=== PATIENT | male | born 1930 | race Caucasian/White ===

== ENCOUNTER 2017-08-02 08:17 | Inpatient (IN) | payer OTHER ==
[~2017-08-02] VITALS: Ht 172.7 cm; Wt 96.5 kg
--- NOTE | ~2017-08-02 | HC ---
[facility] [place] [address] CONSULTATION Name: TORSTEN HERMAN Room #: 353-P [facility] IN ..#: [id number] Admission: 08/02/17 Attend Phys: Joseph Wynn DO Discharge: Date of : 31 Report #: [id number] THIS REPORT FOR: //name// CC: Joseph Noland DATE OF SERVICE: 08/02/2017 ATTENDING PHYSICIAN: Dr. Wynn. REASON FOR EVALUATION: Influenza A. HISTORY OF PRESENT ILLNESS: Chart reviewed, patient examined. This is an 86-year-old male with known vasculopathy with particular coronary artery disease. Also, he is a long time smoker, who apparently had developed shortness of breath roughly 3 days prior to admission that had worsened. He was evaluated and found to have a positive influenza A antigen, started on oseltamivir, also given a dose of doxycycline, ceftriaxone x 1. Chest x-ray showed no infiltrates or evidence of pneumonitis. He is not encephalopathic. He denies any significant gastrointestinal-related complaints. ALLERGIES: LEVAQUIN STATED. MEDICATIONS: Include meloxicam, losartan, finasteride, tamsulosin, spironolactone, metoprolol, allopurinol, oseltamivir, atorvastatin, furosemide, ipratropium and albuterol inhaler, doxycycline, ceftriaxone as well. 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 SOCIAL HISTORY: Smoker [id number], cigars. Daily heavy alcohol. REVIEW OF SYSTEMS: As above. PHYSICAL EXAMINATION: GENERAL: He appears somewhat chronically ill. He is in moderate distress secondary to respiratory difficulties. He has got some audible wheezing. VITAL SIGNS: Temperature 99, pulse 85, respirations 24, blood pressure 125/85. SKIN: Warm. HEENT: Unremarkable. NECK: Supple. LUNGS: Diminished, otherwise clear breath sounds. HEART: Regular. No appreciated murmur. ABDOMEN: Soft, nontender. There are no peritoneal signs. GENITOURINARY AND RECTAL: Deferred. [facility] [address] [place] [address] CONSULTATION Name: TORSTEN HERMAN Dede Room #: 353-[facility] IN ..#: [id number] Admission: 08/02/17 Attend Phys: Joseph Wynn DO Discharge: Date of : 31 Report #: [id number] LABORATORY DATA: Lactic acid 1.6, it is down from 2.9. CBC: White count of 19.0, H and H 13.1 and 39.0, platelets of 229. Electrolytes: Sodium 141, potassium 3.4, chloride 101, bicarbonate is 27, anion gap of 13. BUN and creatinine 16 and 1.1. Glucose of 146. Estimated GFR of 64. Chest x-ray as described above, cardiomegaly, mild chronic-appearing congestion, mild medial basilar atelectasis, no acute chest process. Influenza antigen A was positive. ASSESSMENT: Influenza A. The patient certainly has risk factor for a more severe illness. We will continue the Tamiflu at this point. We will monitor expectantly. I do not think there is any evidence of secondary bacterial pneumonia, although he is at risk in the event of any worsening. We will consider that diagnosis and perhaps start empiric therapy. Continue supportive measures including hydration. <ELECTRONICALLY SIGNED> By: Robin Cornejo MD 08/04/17 1403 1659 0922 Robin Cornejo MD /nt
--- NOTE | ~2017-08-02 | EKG ---
[address] [address] ELECTROCARDIOGRAM REPORT Name: TORSTEN HERMAN Room #: 353-P ADM IN M.R.#: [id number] Admission: 08/02/17 Attend Phys: Joseph Wynn DO Discharge: Date of : 31 Report #: [id number] THIS REPORT FOR: //name// [facility] ED Test Date: 2017-08-02 Test Time: 08:27:45 Pat Name: TORSTEN HERMAN Department: Room: 353 P Gender: M Recycler: homar : 1930 Requested By: Jose Martin Peraza Order Number: [id number] MD: Terry Styles Measurements Intervals [place] Rate: 126 P: MS: QRS: 95 QRSD: 150 T: -5 QT: 347 QTc: 503 Interpretive Statements Atrial fibrillation Ventricular premature complex RBBB Anteroseptal infarct, age indeterminate Compared to ECG 11/07/2013 18:17:46 Ventricular premature complex(es) now present atrial fibrillation has replaced sinus rhythm Electronically Signed On 08-03-2017 10:01:05 PLATING TANK OPERATOR APPRENTICE by Terry Styles [email or web address] <ELECTRONICALLY SIGNED> By: Terry Styles MD, [facility] 08/03/17 1001 0827 0827 Terry Styles MD, [facility] /EPI
[2017-08-02 08:17] VITALS: BP 197/111
[~2017-08-02 08:17] MED LIST: ALDACTONE25 MG PO; ALLOPURINOL 30300 M1 PO; ALLOPURINOL 30300 M3 PO; AMBIEN 5 MG TABL5 M1 PO; ASPIR-TRIN325 MG PO; ASPIRIN325 PO; ATORVASTATIN CA40 MG PO; CARDURA2 MG PO; COZAAR 25 MG TA25 M1 PO; DAYPRO600 MG PO; DELUXE TABLET1 EACH PO; FINASTERIDE5 MG PO; FLOMAX0.4 MG PO; FUROSEMIDE 20 M20 M1 PO; LASIX 40 MG TAB40 M2 PO; LIPITOR80 MG PO; MICARDIS40 MG PO; NORCO 5-325 TA1 EACH PO; PROMETHAZINE/C118 ML PO; PROSCAR 5MG TABL5 MG PO; SIMVASTATIN80 MG PO; TOPROL XL25 MG PO; ULTRAM 50MG TAB50 MG PO; ZOFRAN ODT4 MG PO
[2017-08-02 08:46] LABS: HEMOGLOBIN 13.1 gm/dL (14.0-18.0); MCH 31.3 pg (26.0-34.0); MCHC 33.6 g/dL (28.0-37.0); MCV 93.4 fL (80.0-100.0); RBC 4.18 mil/uL (4.50-6.00); RDW 16.2 % (10.5-14.5)
[2017-08-02] MEDS ORDERED: MOBIC7.5 M1 PO (08:48)
[2017-08-02 08:59] LABS: CALCIUM 9.6 mg/dL (8.5-10.1); CREATININE 1.1 mg/dL (0.7-1.3); POTASSIUM 3.4 mmol/L (3.5-5.1)
[2017-08-02 11:05] VITALS: BP 158/140
[2017-08-02 11:11] VITALS: BP 164/71
[2017-08-02 11:31] VITALS: BP 144/68
[2017-08-02 16:36] VITALS: BP 125/85
[2017-08-02 19:55] VITALS: BP 119/76
[2017-08-03 03:40] VITALS: BP 122/81
[2017-08-03 06:54] LABS: HEMATOCRIT 33.8 % (42.0-52.0); HEMOGLOBIN 11.3 gm/dL (14.0-18.0); MCH 31.6 pg (26.0-34.0); MCHC 33.5 g/dL (28.0-37.0); MCV 94.2 fL (80.0-100.0); PLATELET COUNT 222 thou/uL (150-400); RBC 3.58 mil/uL (4.50-6.00); RDW 16.4 % (10.5-14.5); WBC 9.7 thou/uL (4.0-11.0)
[2017-08-03 07:07] LABS: CALCIUM 8.1 mg/dL (8.5-10.1); CREATININE 0.8 mg/dL (0.7-1.3); POTASSIUM 3.3 mmol/L (3.5-5.1)
[2017-08-03 08:09] LABS: ABSOLUTE NEUTROPHILS 8.1 thou/uL (1.4-8.2); ANISOCYTOSIS 1+; ATYPICAL LYMPHS 1 %; POLYCHROMASIA OCCASIONAL
[2017-08-03 08:10] LABS: POIKILOCYTOSIS SLIGHT
[2017-08-03 08:31] VITALS: BP 124/70
[2017-08-03 12:55] VITALS: BP 106/92
[2017-08-03 16:17] VITALS: BP 145/91
[2017-08-03 19:17] VITALS: BP 126/80
[2017-08-04 04:09] VITALS: BP 140/88
[2017-08-04 06:55] LABS: HEMATOCRIT 33.2 % (42.0-52.0); HEMOGLOBIN 11.6 gm/dL (14.0-18.0); MCH 32.3 pg (26.0-34.0); MCHC 34.9 g/dL (28.0-37.0); MCV 92.6 fL (80.0-100.0); PLATELET COUNT 236 thou/uL (150-400); RBC 3.58 mil/uL (4.50-6.00); RDW 16.6 % (10.5-14.5); WBC 7.8 thou/uL (4.0-11.0)
[2017-08-04 07:10] LABS: CALCIUM 8.4 mg/dL (8.5-10.1); CREATININE 0.8 mg/dL (0.7-1.3); POTASSIUM 3.2 mmol/L (3.5-5.1)
[2017-08-04 08:28] VITALS: BP 141/81
[2017-08-04 11:52] LABS: ABSOLUTE NEUTROPHILS 5.5 thou/uL (1.4-8.2); POLYCHROMASIA 1+
[2017-08-04 11:53] LABS: ANISOCYTOSIS SLIGHT
[2017-08-04] MEDS ORDERED: OSELB75 PO (14:23)
[2017-08-04] MEDS ORDERED: NEBULIZER MISCELL (14:24)
[2017-08-04] MEDS ORDERED: ALBUTEROL2.5 MG/0.5 INH (14:24)
[2017-08-04 15:17] VITALS: BP 141/81
== END 2017-08-04 16:12 | disposition home or self-care (01) | DRG 871 ==
LOC: ER 08:17 → 3W 09:43 → EROBS 09:43 → 3W 10:55
PROVIDERS: Emergency Medicine; Family Medicine
DX: A41.9 Sepsis, unspecified organism (principal); J96.00 Acute respiratory failure, unspecified whether with hypoxia or hypercapnia; I10 Essential (primary) hypertension; R65.20 Severe sepsis without septic shock; I48.91 Unspecified atrial fibrillation; I25.10 Atherosclerotic heart disease of native coronary artery without angina pectoris; E78.5 Hyperlipidemia, unspecified; F17.210 Nicotine dependence, cigarettes, uncomplicated; J11.1 Influenza due to unidentified influenza virus with other respiratory manifestations; Z88.1 Allergy status to other antibiotic agents; Z95.1 Presence of aortocoronary bypass graft; Z95.2 Presence of prosthetic heart valve
CPT/HCPCS: 10779

== ENCOUNTER → 2017-09-21 | Outpatient (CLI) | payer OTHER ==
[~2017-09-21] MED LIST changes: +ALBUTEROL2.5 MG/0.5 INH; +MOBIC7.5 M1 PO; +NEBULIZER MISCELL; +OSELB75 PO
--- NOTE | ~2017-09-21 | 2DMMODE ---
[facility] [address] [place] [address] 2 D/M-MODE ECHOCARDIOGRAM Name: TORSTEN HERMAN HORACIO Room #: REG [facility]#: [id number] Admission: 09/21/17 Attend Phys: Alonzo Almendarez MD Discharge: Date of : 31 Date of Service: 09/21/17 1516 Report #: [id number] THIS REPORT FOR: //name// APPROVED REPORT Study performed: 09/21/2017 14:15:07 EXAM: Comprehensive 2D, Doppler, and color-flow Echocardiogram Patient Location: Echo lab Status: routine BSA: 2.07 BP: 155/99 mmHg Other Information Study Quality: Good Indications CAD Hypertension/HDD 2D Dimensions RVDd: 36.31 mm LVEF(%): 41.47 (>50%) IVSd: 12.86 (7-11mm) LVOT Diam: 20.27 (18-24mm) LVDd: 60.54 mm PWd: 12.64 (7-11mm) Ascending Ao: 35.23 (22-36mm) LVDs: 48.00 (25-40mm) Aortic Root: 33.48 mm IVC: 18.00 mm Newby's LVEF: 41.47 % Volumes Left Atrial Volume (Systole) Single Plane 4CH: 140.99 mL Single Plane 2CH: 144.98 mL LA ESV Index: 77.00 mL/m2 Aortic Valve AoV Peak Braden.: 2.06 m/s AO Peak Gr.: 17.22 mmHg LVOT Max P.97 mmHg AO Mean Gr.: 8.89 mmHg LVOT Mean P.42 mmHg AO V2 Mean: 1.35 m/s LVOT Max V: 1.22 m/s AO V2 VTI: 37.02 cm LVOT Mean V: 0.68 m/s ADELINA (VTI): 1.69 cm2 LVOT V1 VTI: 19.40 cm ADELINA Vmax: 1.91 cm2 SV (LVOT): 62.60 mL [facility] [place] [place] [address] 2 D/M-MODE ECHOCARDIOGRAM Name: TORSTEN HERMNA HORACIO [id number] Admission: 09/21/17 Attend Phys: Alonzo Almendarez MD Discharge: Date of : 31 Date of Service: 09/21/17 1516 Report #: [id number] Mitral Valve MV Decel. Time: 167.08 ms MV E Max Braden.: 1.41 m/s Pulmonary Valve PV Peak Braden.: 1.34 m/s PV Peak Gr.: 7.27 mmHg Pulmonary Vein P Vein S: 0.65 m/s P Vein D: 0.79 m/s P Vein S/D Ratio: 0.82 Tricuspid Valve TR Peak Braden.: 3.64 m/s RAP Estimate: 5.00 mmHg TR Peak Gr.: 52.93 mmHg PA Pressure: 58.00 mmHg Left Ventricle Left ventricle is mildly dilated. Mild concentric left ventricular hypertrophy. Left ventricular systolic function is moderately decreased. LVEF is 35-40%. This study is not technically sufficient to allow evaluation of the LV diastolic function. Right Ventricle Right ventricle is at the upper limits of normal. Right ventricle is hypokinetic. Atria Left atrium is severely dilated. Right atrium is severely dilated. Aortic Valve Medtronic porcine bioprosthetic valve is present with a max pressure gradient of 17 mmHg and a mean pressure gradient of 9 mmHg. Moderate aortic regurgitation. Mitral Valve Mild mitral annular calcification. The mitral valve is mildly thickened. Severe mitral regurgitation. No evidence of mitral valve stenosis. Tricuspid Valve The tricuspid valve is normal in structure. Moderate tricuspid regurgitation. PAP is estimated at 58 mmHg. [facility] [address] [place] [address] 2 D/M-MODE ECHOCARDIOGRAM Name: TORSTEN HERMAN Room #: REG CL [facility]#: [id number] Admission: 09/21/17 Attend Phys: Alonzo Almendarez MD Discharge: Date of : 31 Date of Service: 09/21/17 1516 Report #: [id number] Pulmonic Valve The pulmonary valve is normal in structure. Mild pulmonic regurgitation. Great Vessels The aortic root is normal in size. IVC is normal in size and collapses >50% with inspiration. Pericardium There is no pericardial effusion. <Conclusion> Left ventricle is mildly dilated. Mild concentric left ventricular hypertrophy. Left ventricular systolic function is moderately decreased. Left atrium is severely dilated. Right atrium is severely dilated. Medtronic porcine bioprosthetic valve is present with a max pressure gradient of 17 mmHg and a mean pressure gradient of 9 mmHg. Moderate aortic regurgitation. Severe mitral regurgitation. Moderate tricuspid regurgitation. PAP is estimated at 58 mmHg. <ELECTRONICALLY SIGNED> By: Alonzo Almendarez MD 09/21/17 1516 1516 1516 Alonzo Almendarez MD /INF
== END ==
LOC: CV 12:49
DX: I08.3 Combined rheumatic disorders of mitral, aortic and tricuspid valves (principal); I25.10 Atherosclerotic heart disease of native coronary artery without angina pectoris; I10 Essential (primary) hypertension

== ENCOUNTER → 2018-11-29 | Outpatient (CLI) | payer OTHER ==
--- NOTE | 2018-11-29 09:37 | 2DMMODE ---
[facility] [place] [address] 2 D/M-MODE ECHOCARDIOGRAM Name: TORSTEN HERMAN HORACIO Room #: REG [facility]#: [id number] ������������� Admission: 11/29/18 ������������� Attend Phys: Alonzo Almendarez MD Discharge: ��� ������������� ��� Date of : 32 Date of Service: 11/29/18 0937 �� Report #: [id number] �������� ��������������������������������������������[id number] THIS REPORT FOR: //name// APPROVED REPORT Study performed: 11/29/2018 08:03:12 EXAM: Comprehensive 2D, Doppler, and color-flow Echocardiogram Patient Location: Out-Patient Status: routine BSA: 2.00 HR: 53 bpm BP: 144/64 mmHg Rhythm: Atrial Fibrillation Other Information Study Quality: Good Indications Atrial Fibrillation CAD Aortic valve replacement 2D Dimensions RVDd: 47.39 mm IVSd: 12.23 (7-11mm) LVDd: 58.81 mm PWd: 11.05 (7-11mm) Ascending Ao: 37.60 (22-36mm) LVDs: 47.57 (25-40mm) Aortic Root: 32.12 mm Volumes Left Atrial Volume (Systole) Single Plane 4CH: 120.16 mL Single Plane 2CH: 118.59 mL LA ESV Index: 66.00 mL/m2 Aortic Valve AoV Peak Braden.: 2.48 m/s AO Peak Gr.: 24.65 mmHg LVOT Max P.14 mmHg AO Mean Gr.: 14.42 mmHg AO V2 Mean: 1.82 m/s LVOT Max V: 0.73 m/s AO V2 VTI: 63.10 cm Mitral Valve [facility] [address] [address] 2 D/M-MODE ECHOCARDIOGRAM Name: VIRGILTORSTENFARHAT LEONARD Room #: REG CL [facility]#: [id number] ������������� Admission: 11/29/18 ������������� Attend Phys: Alonzo Almendarez MD Discharge: ��� ������������� ��� Date of : 31 Date of Service: 11/29/18 0937 �� Report #: [id number] �������� ��������������������������������������������[id number] MV Decel. Time: 189.31 ms MV E Max Braden.: 1.31 m/s IVRT: 69.20 ms Pulmonary Valve PV Peak Braden.: 0.89 m/s PV Peak Gr.: 3.20 mmHg Pulmonary Vein P Vein S: 0.37 m/s P Vein D: 0.72 m/s P Vein S/D Ratio: 0.51 Tricuspid Valve TR Peak Braden.: 3.58 m/s RAP Estimate: 5.00 mmHg TR Peak Gr.: 51.15 mmHg PA Pressure: 56.00 mmHg Left Ventricle Left ventricle is mildly dilated. There is hypokinesis of the inferior wall. Mild concentric left ventricular hypertrophy. Left ventricular systolic function is mild to moderately decreased. LVEF is 40-45%. This study is not technically sufficient to allow evaluation of the LV diastolic function. Right Ventricle Right ventricle is mildly dilated. The right ventricular systolic function is normal. Atria Left atrium is severely dilated. Right atrium is severely dilated. Aortic Valve Medtronic porcine bioprosthetic valve. Peak pressure gradient 25mmHg and mean of 14mmHg. Mild to moderate aortic regurgitation. Mitral Valve The mitral valve is normal in structure. Severe mitral regurgitation. Tricuspid Valve The tricuspid valve is normal in structure. Moderate tricuspid regurgitation. Estimated PAP is 55-60mmHg. Pulmonic Valve The pulmonary valve is normal in structure. Mild pulmonic [facility] [place] [address] 2 D/M-MODE ECHOCARDIOGRAM Name: TORSTEN HERMAN HORACIO Room #: REG CL [facility]#: [id number] ������������� Admission: 11/29/18 ������������� Attend Phys: Alonzo Almendarez MD Discharge: ��� ������������� ��� Date of : 31 Date of Service: 11/29/18 0937 �� Report #: [id number] �������� ��������������������������������������������[id number] regurgitation. Great Vessels The aortic root is normal in size. Ascending aorta measures at the upper limits of normal. IVC is normal in size and collapses >50% with inspiration. Pericardium There is no pericardial effusion. <Conclusion> Left ventricle is mildly dilated. Mild concentric left ventricular hypertrophy. Left ventricular systolic function is mild to moderately decreased. LVEF is 40-45%. Right ventricle is mildly dilated. Left atrium is severely dilated. Right atrium is severely dilated. Medtronic porcine bioprosthetic valve. Peak pressure gradient 25mmHg and mean of 14mmHg. Mild to moderate aortic regurgitation. Severe mitral regurgitation. Moderate tricuspid regurgitation. Estimated PAP is 55-60mmHg. ��������������������������������������������� <ELECTRONICALLY SIGNED> ���������������������������������������� By: Alonzo Almendarez MD ��������������������������������������������� 11/29/1837 6 6 Alonzo Almendarez MD /INF
== END ==
LOC: CV 07:37
DX: I08.8 Other rheumatic multiple valve diseases (principal); I48.91 Unspecified atrial fibrillation; I25.10 Atherosclerotic heart disease of native coronary artery without angina pectoris; Z88.1 Allergy status to other antibiotic agents

== ENCOUNTER 2019-06-08 03:36 | Emergency (ER) | payer OTHER ==
[~2019-06-08] VITALS: Ht 175.3 cm; Wt 83.9 kg
[2019-06-08 04:40] LABS: URINE CLARITY CLOUDY; URINE COLOR YELLOW; URINE SPECIFIC GRAVITY 1.015 (1.005-1.035)
[2019-06-08 04:41] LABS: URINE BILIRUBIN NEGATIVE (Negative); URINE BLOOD 3+ (Negative); URINE GLUCOSE-RANDOM* NEGATIVE (Negative); URINE KETONES TRACE (Negative); URINE NITRITE-REFLEX NEGATIVE (Negative); URINE PROTEIN (DIPSTICK) 2+ (Negative)
[2019-06-08 04:42] LABS: BACTERIA-REFLEX >30 Many /HPF (None Seen); SQUAMOUS 0-3 Few /LPF (0-3); URINE LEUKOCYTES-REFLEX 3+ (Negative); URINE RBC >20 Many /HPF (0-2); URINE UROBILINOGEN 0.2 E.U./dl (0.2-1.0); URINE WBC-REFLEX >25 Many /HPF (0-5); WBC CLUMPS Packed (None Seen)
[2019-06-08 04:43] LABS: CRYSTALS None Seen /LPF (None Seen); HYALINE CASTS 4-10 Moderate /LPF (None Seen); MUCUS 0-3 Light strn/LPF (None Seen)
[2019-06-08] MEDS ORDERED: KEFLEX500 M1 PO (04:46)
[2019-06-08 05:04] VITALS: BP 159/68
== END 2019-06-08 05:04 | disposition home or self-care (01) ==
LOC: ER 03:36
PROVIDERS: Emergency Medicine
DX: R33.9 Retention of urine, unspecified (principal); I10 Essential (primary) hypertension; E78.5 Hyperlipidemia, unspecified; F17.210 Nicotine dependence, cigarettes, uncomplicated; Z88.1 Allergy status to other antibiotic agents

== ENCOUNTER → 2019-12-29 | Outpatient (CLI) | payer OTHER ==
[~2019-12-29] MED LIST changes: +KEFLEX500 M1 PO
== END ==
LOC: SJCVCIMAG 09:56
PROVIDERS: ATTEND Internal Medicine Cardiovascular Disease
DX: R94.31 Abnormal electrocardiogram [ECG] [EKG] (principal); I08.8 Other rheumatic multiple valve diseases; I45.10 Unspecified right bundle-branch block; I48.91 Unspecified atrial fibrillation; I25.5 Ischemic cardiomyopathy; I25.10 Atherosclerotic heart disease of native coronary artery without angina pectoris; I10 Essential (primary) hypertension; E78.00 Pure hypercholesterolemia, unspecified; Z95.1 Presence of aortocoronary bypass graft; Z95.2 Presence of prosthetic heart valve

== ENCOUNTER 2020-02-20 15:03 | Emergency (ER) | payer OTHER ==
[~2020-02-20] VITALS: Ht 170.2 cm; Wt 86.2 kg
[2020-02-20 15:47] LABS: HEMOGLOBIN 10.6 gm/dL (14.0-18.0); MCH 32.3 pg (26.0-34.0); MCV 97.8 fL (80.0-100.0); PLATELET COUNT 201 thou/uL (150-400); RBC 3.27 mil/uL (4.50-6.00); RDW 18.2 % (10.5-14.5); WBC 7.5 thou/uL (4.0-11.0)
[2020-02-20 15:51] LABS: CALCIUM 9.6 mg/dL (8.5-10.1); CREATININE 1.1 mg/dL (0.7-1.3); POTASSIUM 3.8 mmol/L (3.5-5.1)
[2020-02-20 15:57] LABS: TOTAL PROTEIN 7.2 g/dL (6.4-8.2)
[2020-02-20 16:15] LABS: PLATELET ESTIMATE NORMAL
[2020-02-20 16:16] LABS: ANISOCYTOSIS 1+
[2020-02-20] MEDS ORDERED: PREDNISONE 20 M20 MG PO (18:13)
[2020-02-20] MEDS ORDERED: TRAMADOL 50 MG50 MG PO (18:13)
[2020-02-20] MEDS ORDERED: MELOXICAM7.5 MG PO (18:47)
[2020-02-20 20:06] VITALS: BP 136/72
== END 2020-02-20 20:07 | disposition home or self-care (01) ==
LOC: ER 15:03
PROVIDERS: Emergency Medicine
DX: M25.422 Effusion, left elbow (principal); I10 Essential (primary) hypertension; E78.5 Hyperlipidemia, unspecified; F17.210 Nicotine dependence, cigarettes, uncomplicated; Z95.1 Presence of aortocoronary bypass graft; Z79.899 Other long term (current) drug therapy; Z88.1 Allergy status to other antibiotic agents

== ENCOUNTER 2020-03-29 17:35 | Emergency (ER) | payer OTHER ==
[~2020-03-29] VITALS: Ht 172.7 cm; Wt 81.7 kg
[~2020-03-29 17:35] MED LIST changes: +MELOXICAM7.5 MG PO; +PREDNISONE 20 M20 MG PO; +TRAMADOL 50 MG50 MG PO
[2020-03-29] MEDS ORDERED: PRADAXA75 MG PO (18:03)
[2020-03-29] MEDS ORDERED: ASA81BEC PO (18:05)
[2020-03-29] MEDS ORDERED: LEVO-T50 MCG PO (18:05)
[2020-03-29] MEDS ORDERED: TOPROL XL50 MG PO (18:06)
[2020-03-29 20:14] VITALS: BP 107/31
--- NOTE | 2020-03-30 08:30 | EKG ---
[facility] [place] [address] [address] ELECTROCARDIOGRAM REPORT Name: TORSTEN HERMAN Room #: DEP [facility].#: [id number] Admission: 03/29/20 Attend Phys: Discharge: 03/29/20 Date of : 31 Report #: [id number] THIS REPORT FOR: cc: Husam Noland MD, Steven A. MD Lundgren,Terry Aparicio MD [facility] ~ THIS REPORT FOR: //name// [facility] ED Test Date: 2020-03-29 Test Time: 19:38:00 Pat Name: TORSTEN HERMAN Department: Room: Gender: Antenna Installer: pablo : 1930 Requested By: Kingsley uDncan Order Number: [id number] MD: Terry Styles Measurements Intervals [place] Rate: 42 P: GA: QRS: 95 QRSD: 161 T: 7 QT: 524 QTc: 438 Interpretive Statements Atrial fibrillation Ventricular premature complex RBBB and LPFB Compared to ECG 08/02/2017 08:27:45 Heart rate has slowed Electronically Signed On 03-30-2020 8:30:36 CDT by Terry Styles [email or web address] <ELECTRONICALLY SIGNED> By: Terry Styles MD, [facility] 03/30/20829 37 37 Terry Styles MD, [facility] /EPI
== END 2020-03-29 20:14 | disposition home or self-care (01) ==
LOC: ER 17:35
DX: S01.01XA Laceration without foreign body of scalp, initial encounter (principal); I10 Essential (primary) hypertension; E78.5 Hyperlipidemia, unspecified; F17.210 Nicotine dependence, cigarettes, uncomplicated; Z98.61 Coronary angioplasty status; Z79.899 Other long term (current) drug therapy; Z79.82 Long term (current) use of aspirin; Z88.1 Allergy status to other antibiotic agents; W01.0XXA Fall on same level from slipping, tripping and stumbling without subsequent striking against object, initial encounter; Y93.89 Activity, other specified; Y92.488 Other paved roadways as the place of occurrence of the external cause; Y99.8 Other external cause status

== ENCOUNTER → 2020-06-11 | Outpatient (CLI) | payer OTHER ==
[~2020-06-11] MED LIST changes: +ASA81BEC PO; +LEVO-T50 MCG PO; +PRADAXA75 MG PO; +TOPROL XL50 MG PO
== END ==
LOC: SJCVC 10:00
PROVIDERS: ATTEND Internal Medicine Cardiovascular Disease
DX: I21.29 ST elevation (STEMI) myocardial infarction involving other sites (principal); I45.10 Unspecified right bundle-branch block; R94.31 Abnormal electrocardiogram [ECG] [EKG]; I11.9 Hypertensive heart disease without heart failure; I48.91 Unspecified atrial fibrillation; I25.5 Ischemic cardiomyopathy; I25.10 Atherosclerotic heart disease of native coronary artery without angina pectoris; E78.00 Pure hypercholesterolemia, unspecified

== ENCOUNTER 2020-06-21 18:22 | Inpatient (IN) | payer OTHER ==
[~2020-06-21] VITALS: Ht 152.4 cm; Wt 85.7 kg
--- NOTE | ~2020-06-21 | EMS ---
[place] [address] EMS Patient Care Report Name: TORSTEN HERMAN Room #: REG Y[facility] Morales#: [id number] Admission: 06/21/20 Attend Phys: Discharge: Date of : 31 Report #: [id number] THIS REPORT FOR: //name// Report Transmitted: 06/21/2020 19:13 EMS Care Summary [place] [facility] [place] Incident [phone] @ 06/21/2020 17:45 Incident Location [address] [place] [address] Patient TORSTEN HERMAN Male, 89 Years 1930 Patient Address [address] [place] [address] Patient History Other, Patient Medications Other, Chief Complaint WEAKNESS Disposition Transported No Lights/[place] Dispatch Reason Breathing Problem Transported To [facility] Narrative DISPATCHED TO A BREATHING PROBLEM. ARRIVED ON SCENE TO FIND FIRE CREW ASSESSING MALE PATIENT SEATED ON THE SOFA IN HIS LIVING ROOM. PATIENT'S STATED THAT HE HAD BEEN DIAGNOSED WITH COVID 19 YESTERDAY AND HAS BEEN FEELING ILL SINCE LAST THURSDAY. TODAY HE WAS TOO WEAK TO GET OFF OF THE SOFA TO USE THE RESTROOM AND SHE SAID HE CAN NORMALLY DO THAT. SHE SAID THAT SHE IS UNABLE TO LIFT HIM TO HELP HIM GET AROUND. ALSO SAID THAT PATIENT [place] [address] EMS Patient Care Report Name: TORSTEN HERMAN Room #: REG ER [facility]#: [id number] Admission: 06/21/20 Attend Phys: Discharge: Date of : 31 Report #: [id number] FOR THE PAST TWO DAYS. FIRE CREW HAD OBTAINED ON SCENE VITALS AND PLACED THE PATIENT ON OXYGEN VIA NASAL CANNULA. HIS LUNGS WERE AUSCILTATED AND FOUND TO BE COARSE BUT MOVING GOOD AIR. PATIENT WAS WARM TO THE TOUCH BUT HE SAID THAT HE DID NOT HAVE ANY OTHER COMPLAINTS EXCEPT FOR THE INCREASED WEAKNESS. PATIENT DENIED ANY SHORTNESS OF BREATH. HE WAS ASSISTED IN STANDING AND SITTING ON THE COT, COVERED, SECURED WITH STRAPS, AND MOVED TO THE BACK OF THE AMBULANCE. PATIENT VITALS WERE REOBTAINED AND HE WAS TRANSPORTED TO THE HOSPITAL WITH VITALS AND INTERVENTIONS MONITORED. UPON ARRIVAL PATIENT WAS MOVED TO ED ROOM 1 ON THE COT AND LIFTED OVER TO THE HOSPITAL BED. PATIENT CARE WAS TURNED OVER TO ED NURSING STAFF. Initial Vitals @18:11P: 91,BP: 152/94,CO: 3,SpO2: 96, @18:07P: 78,R: 16,BP: 144/84,Pain: 0/10,GCS: 15,Glucose: 148,CO: 1,SpO2: 96,Revised Trauma: 12, @18:14P: 101,R: 16,BP: 153/63,Pain: 0/10,GCS: 15,CO: 3,SpO2: 97,Revised Trauma: 12, Assessments @17:55MENTAL:Person Oriented,Time Oriented,Event Oriented,Place Oriented,SKIN:Hot,HEENT:Head/Face: No Abnormalities,Neck/Airway: No Abnormalities,LUNG SOUNDS:General: No Abnormalities,Left Upper: No Abnormalities,Right Upper: No Abnormalities,Left Lower: No Abnormalities,Right Lower: No Abnormalities,ABDOMEN:General: No Abnormalities,Left Upper: No Abnormalities,Right Upper: No Abnormalities,Left Lower: No Abnormalities,Right Lower: No Abnormalities,PELVIS//GI:No Abnormalities,EXTREMITIES:Left Leg: Weakness,Right Leg: Weakness,Right Arm: Weakness,Left Arm: Weakness,Capillary Refill: Right Upper: < 2 Sec,PULSE:Radial: 2+ Normal,NEURO:Weakness Right-Sided,Weakness Left-Sided, Impression Generalized Weakness Procedures @17:55ALS AssessmentResponse: UnchangedSucceeded@PTAOxygen FlowRate: 4 Device: Nasal Cannula (NC) Succeeded Timeline BASKETBALL COMMENTATOR,Oxygen FlowRate: 4 Device: Nasal Cannula (NC) Succeeded, 17:43,Call Received 17:43,Dispatch Notified 17:45,Dispatched 17:46,En Route 17:53,On Scene 17:55,At Patient 17:55,ALS Assessment,Response: UnchangedSucceeded, [facility] [address] [place] [address] EMS Patient Care Report Name: TORSTEN HERMAN Room #: REG A[facility] Morales#: [id number] Admission: 06/21/20 Attend Phys: Discharge: Date of : 31 Report #: [id number] 18:05,Depart Scene 18:07,BP: 144/84 M,PULSE: 78,RR: 16 R,SPO2: 96 Ox,ETCO2: ,B,PAIN: 0,GCS: 15, 18:11,BP: 152/94 M,PULSE: 91,RR: R,SPO2: 96 Ox,ETCO2: ,BG: ,PAIN: ,GCS: , 18:14,BP: 153/63 M,PULSE: 101,RR: 16 R,SPO2: 97 Ox,ETCO2: ,BG: ,PAIN: 0,GCS: 15, 18:15,At Destination 18:28,Call Closed Disclaimer v1.1 Copyright 2020 [employer] This EMS Care Summary contains data elements from the applicable legal record (which may be displayed differently). It is designed to provide pertinent information for the following purposes: continuity of care, clinical quality, and state data reporting. The complete legal record is available to ED staff and administrators of the receiving hospital in ES's Patient Tracker. All data is provided "as is."
[2020-06-21 18:24] VITALS: BP 141/86
[2020-06-21 18:55] LABS: HEMATOCRIT 30.4 % (42.0-52.0); MCH 29.8 pg (26.0-34.0); MCV 90.4 fL (80.0-100.0); PLATELET COUNT 200 thou/uL (150-400); RBC 3.36 mil/uL (4.50-6.00); RDW 18.5 % (10.5-14.5); WBC 6.8 thou/uL (4.0-11.0)
[2020-06-21 19:02] LABS: CALCIUM 8.9 mg/dL (8.5-10.1); CREATININE 1.3 mg/dL (0.7-1.3); POTASSIUM 3.1 mmol/L (3.5-5.1)
[2020-06-21 19:08] LABS: ALBUMIN 3.4 g/dL (3.4-5.0); DIRECT BILIRUBIN 0.6 mg/dL (<0.1-0.2); TOTAL BILIRUBIN 1.6 mg/dL (0.2-1.0); TOTAL PROTEIN 6.7 g/dL (6.4-8.2)
[2020-06-21 19:38] LABS: ABSOLUTE NEUTROPHILS 3.9 thou/uL (1.4-8.2)
[2020-06-21 19:39] LABS: ANISOCYTOSIS 1+; POLYCHROMASIA OCCASIONAL
[2020-06-21 20:52] LABS: CHOLESTEROL 93 mg/dL (<200); HDL CHOLESTEROL 28 mg/dL (>40); LDL CHOLESTEROL 52 mg/dL (<100); TC:HDL 3.3 Ratio (Not establshd); TRIGLYCERIDE 66 mg/dL (<150); VLDL 13 mg/dL (<40)
[2020-06-21 20:57] LABS: SERUM ASSESSMENT Clear
[2020-06-22 00:39] LABS: URINE BILIRUBIN NEGATIVE (Negative); URINE BLOOD 2+ (Negative); URINE CLARITY CLEAR; URINE COLOR YELLOW; URINE GLUCOSE-RANDOM* NEGATIVE (Negative); URINE KETONES NEGATIVE (Negative); URINE LEUKOCYTES-REFLEX NEGATIVE (Negative); URINE NITRITE-REFLEX NEGATIVE (Negative); URINE PROTEIN (DIPSTICK) 2+ (Negative)
[2020-06-22 00:59] LABS: BACTERIA-REFLEX None Seen /HPF (None Seen); CASTS None Seen /LPF (None Seen); CRYSTALS None Seen /LPF (None Seen); MUCUS None Seen strn/LPF (None Seen); SQUAMOUS None Seen /LPF (0-3); URINE RBC 0-2 Rare /HPF (0-2); URINE WBC-REFLEX None Seen /HPF (0-5)
[2020-06-22 01:05] LABS: APTT 29.6 Seconds (24.5-32.8); FIBRINOGEN 310.9 mg/dL (210-360); INR 1.4; PROTIME 14.3 Seconds (9.3-11.4)
[2020-06-22 01:16] LABS: D-DIMER 1.7 ug/mLFEU (0.19-0.50)
[2020-06-22 05:37] LABS: HEMATOCRIT 28.1 % (42.0-52.0); HEMOGLOBIN 9.2 gm/dL (14.0-18.0); MCHC 32.7 g/dL (28.0-37.0); MCV 91.8 fL (80.0-100.0); RBC 3.07 mil/uL (4.50-6.00); RDW 18.3 % (10.5-14.5); WBC 2.6 thou/uL (4.0-11.0)
[2020-06-22 07:00] LABS: CALCIUM 8.2 mg/dL (8.5-10.1); CREATININE 1.1 mg/dL (0.7-1.3); POTASSIUM 3.5 mmol/L (3.5-5.1)
--- NOTE | 2020-06-22 07:34 | EKG ---
[facility] [place] [address] [place] [address] ELECTROCARDIOGRAM REPORT Name: TOSRTEN HERMAN Room #: 170-1 ADM IN M.R.#: [id number] Admission: 06/21/20 Attend Phys: Barrington Barber MD Discharge: Date of : 31 Report #: [id number] THIS REPORT FOR: cc: Husam Noland MD, Steven A. MD Santiago, Patrick MD [facility] WITH [facility] ~ THIS REPORT FOR: //name// [facility] ED Test Date: 2020-06-22 Test Time: 02:00:41 Pat Name: TORSTEN HERMAN Department: Room: 170 1 Gender: M Glass Sagger: asmita : 1930 Requested By: Dorita Camilo Order Number: [id number] MD: Mitchell Henry Measurements Intervals [place] Rate: 44 P: MS: QRS: 101 QRSD: 168 T: 103 QT: 598 QTc: 512 Interpretive Statements Atrial fibrillation Ventricular premature complex RBBB and LPFB Compared to ECG 03/29/2020 19:38:00 No significant changes Electronically Signed On 06-22-2020 7:34:05 FORENSIC COMPUTER EXAMINER by Mitchell Henry [email or web address] <ELECTRONICALLY SIGNED> By: Mitchell Henry MD, FACC 06/22/20 0734 9 9 Mitchell Henry MD, FAC /EPI
[2020-06-22 17:14] VITALS: BP 116/51
[2020-06-22 18:16] VITALS: BP 124/74
[2020-06-22] MEDS ORDERED: PRADAXA150 MG PO (18:20)
[2020-06-22 18:25] VITALS: BP 123/56
--- NOTE | 2020-06-22 18:45 | NUR ---
ASSUMED CARE OF PT UPON ARRIVAL TO UNIT AT APPROX 1830. PT AOX4 IN NO ACUTE DISTRESS. UP W/ WALKER OT BATHROOM. VOICING NO COMPLAINTS. VITALS STABLE . IRREGULAR ON TELEMETRY. EDUCATED ON FALL PRECAUTIONS.
[2020-06-22 20:34] VITALS: BP 103/68
[2020-06-23 03:55] VITALS: BP 109/62
[2020-06-23 05:25] LABS: HEMATOCRIT 28.5 % (42.0-52.0); HEMOGLOBIN 9.4 gm/dL (14.0-18.0); MCH 29.8 pg (26.0-34.0); MCV 90.4 fL (80.0-100.0); PLATELET COUNT 191 thou/uL (150-400); RBC 3.16 mil/uL (4.50-6.00); RDW 17.8 % (10.5-14.5)
[2020-06-23 05:34] LABS: WBC 10.3 thou/uL (4.0-11.0)
[2020-06-23 07:47] VITALS: BP 108/73
--- NOTE | 2020-06-23 07:53 | NUR ---
ADMIT PT ADMITTED FROM ED FOR R/O COVID. LUNGS CLEAR VSS DENIES COUGH OR OTHER SYMPTOMS ANSWERED QUESTIONS FOR ADMISSION WITHOUT DIFFICULTY. UP WITH SBA AND WALKER GAIT SLIGHTLY UNSTEADY PT DENIES ANY RECENT FALLS. VSS, ON ROOM AIR.
[2020-06-23 11:07] LABS: ABSOLUTE NEUTROPHILS 8.9 thou/uL (1.4-8.2)
[2020-06-23 11:08] LABS: ANISOCYTOSIS 1+
--- NOTE | 2020-06-23 11:12 | HC ---
[facility] [place] [address] CONSULTATION Name: TORSTEN HERMAN Room #: 354-P ADM IN M.R.#: [id number] Admission: 06/21/20 Attend Phys: Barrington Barber MD Discharge: Date of : 31 Report #: [id number] THIS REPORT FOR: cc: Husam Noland MD, Steven A. MD Barry, Joseph W. MD ~ DATE OF SERVICE: 06/22/2020 INFECTIOUS DISEASE CONSULTATION ATTENDING PHYSICIAN: Dr. Barrington Barber. REASON FOR EVALUATION: COVID-19 infection, complicated by pneumonia. HISTORY OF SUBJECTIVE: Chart reviewed, the patient examined. This is an 89-year-old gentleman presented to the Emergency Room with complaints of generalized weakness, previously seen the day before was diagnosed with COVID-19, noted apparently had some emesis with diarrhea as well. He had a nonproductive cough. He was found to have borderline saturations as well, was given some supplemental oxygen got him to 96%. He seen still boarding in the Emergency Room. He denies any significant complaints at this point, states he feels better. He is on room air. Initially had fevers to 101.5, repeat earlier today was 97.5 with relatively stable hemodynamics. Initial chest x-ray did show bilateral diffuse infiltrates. Lactic acid was borderline elevated at 2.0. Influenza antigen testing was negative. Blood cultures are sterile thus as well as urinary antigens were negative, started empiric therapy with azithromycin and ceftriaxone. He is on dexamethasone as well. ALLERGIES: LISTED TO LEVOFLOXACIN. CURRENT MEDICATIONS: Include above noted azithromycin, ceftriaxone, dexamethasone, ipratropium and albuterol inhaler, guaifenesin. PAST MEDICAL HISTORY: History of hypertension, aortic valve replacement, known coronary artery disease, does have severe mitral regurgitation as well. SOCIAL HISTORY: He is a daily drinker. He does smoke cigars on a regular basis as well. REVIEW OF SYSTEMS: He denies any significant pulmonary or gastrointestinal related complaints at the moment. PHYSICAL EXAMINATION: GENERAL: He is pleasant, alert, cooperative, appears somewhat chronically ill, [facility] [address] [place] [address] CONSULTATION Name: OTRSTEN HERMAN HORACIO Room #: 354-P [facility]#: [id number] Admission: 06/21/20 Attend Phys: Barrington Barber MD Discharge: Date of : 31 Report #: [id number] undernourished. VITAL SIGNS: Temperature most recently 97.5, pulse 67, respirations 21, blood pressure is 110/58. SKIN: Warm, dry, no rashes. HEENT: Normocephalic. Extraocular muscles are intact. NECK: Supple. LUNGS: Few scattered coarse breath sounds. HEART: Regular, has a systolic murmur. ABDOMEN: Mildly distended, otherwise soft, nontender. There are no peritoneal signs. GENITOURINARY AND RECTAL: Deferred. LABORATORY DATA: Urinary antigen was negative as described above. Lactic acid most recently 1.2. Procalcitonin 0.34. Electrolytes: Sodium 144, potassium 3.5, chloride 106, bicarbonate 27, anion gap of 11, BUN and creatinine 16 and 1.1, estimated GFR of 63. CBC: White count of 2.6, H and H 9.2 and 28.1, platelets of 153. PT of 14.3, INR 1.4. Fibrinogen of 310. D-dimer elevated at 1.7. Urinalysis otherwise unremarkable. Influenza antigen was negative. COVID positive. ASSESSMENT: COVID-19 infection, complicated by radiographic evidence of pneumonitis. Interestingly, he has adequate saturations on room air. He is not toxic appearing, although he does have some chronicity in his appearance. We will continue empiric antibacterial therapy at this point, see how he does in the next 24-48 hours. Continue corticosteroids. We would likely be able to transition as well to oral antibiotics and steroids prior to discharge. We will add incentive spirometry. Monitor expectantly. <ELECTRONICALLY SIGNED> By: Robin Cornejo MD 06/23/20 1112 [id number] Robin Cornejo MD /nt
[2020-06-23 12:06] VITALS: BP 104/60
[2020-06-23 16:15] VITALS: BP 130/79
--- NOTE | 2020-06-23 18:12 | NUR ---
RN ASSUMED PT'S CARE AT 0700AM, PT IS A&OX2 ( PERSON AND PLACE), PT IS CONFUSED AT TIME, PT STARTS ALCOHOL WITHDRAWAL ASSESSMENT, SCORE AT 0-2, NO MEDICATION NEED BY THIS TIME, PT'S VS ARE STABLE, PT DENIES PAIN AND SOB AT THIS TIME.
[2020-06-23 19:20] VITALS: BP 118/75
[2020-06-24 06:03] LABS: HEMOGLOBIN 10.2 gm/dL (14.0-18.0); MCH 29.3 pg (26.0-34.0); MCHC 31.7 g/dL (28.0-37.0); MCV 92.5 fL (80.0-100.0); PLATELET COUNT 204 thou/uL (150-400); RBC 3.46 mil/uL (4.50-6.00); RDW 18.7 % (10.5-14.5)
[2020-06-24 06:18] LABS: ALBUMIN 3.3 g/dL (3.4-5.0); CALCIUM 7.9 mg/dL (8.5-10.1); CREATININE 1.2 mg/dL (0.7-1.3); MAGNESIUM 1.5 mg/dL (1.8-2.4); PHOSPHORUS 4.2 mg/dL (2.5-4.9); POTASSIUM 3.4 mmol/L (3.5-5.1); TOTAL BILIRUBIN 0.8 mg/dL (0.2-1.0); TOTAL PROTEIN 6.5 g/dL (6.4-8.2)
--- NOTE | 2020-06-24 06:30 | NUR ---
PT ON CIWA Q4 AVERAGING 7. PT IS BECOMING MORE CONFUSED NIGHT GOES ALONG. BECOMING MORE IMPULSIVE AND TRYING TO GET OUT OF THE BED. REDIRECTED MULTIPLE TIMES. POC WITH IVF AND IVPB. FALL AND ISOLATION PRECAUTIONS IN PLACE.
[2020-06-24 09:00] VITALS: BP 143/93
[2020-06-24 11:11] LABS: ABSOLUTE NEUTROPHILS 6.6 thou/uL (1.4-8.2); ANISOCYTOSIS 2+; METAMYELOCYTES 1 %; OVALOCYTES 1+
[2020-06-24 11:12] LABS: BURR CELLS 1+; SCHISTOCYTES RARE
[2020-06-24 11:13] LABS: POIKILOCYTOSIS 1+
[2020-06-24 12:12] VITALS: BP 98/69
[2020-06-24 15:11] VITALS: BP 127/76
--- NOTE | 2020-06-24 17:56 | NUR ---
RN ASSUMED PT'S CARE AT 0700AM, PT KNOWS HIS NAME , PT CAN FOLLOW SOME COMMANDS, BUT PT IS CONFUSED AND IMPULSIVE TO GET UP BY HIMSELF , PT IS HIGH FALL RISK, PT'S VS ARE STABLE, PT DOES NOT HAVE FEVER AND SOB.
[2020-06-24 20:00] VITALS: BP 141/70
[2020-06-25 03:55] VITALS: BP 160/74
[2020-06-25 04:22] LABS: BE(vivo) -9.8 mmol/L (-2 to +3); HCO3 14.5 mmol/L (22.0-26.0); PCO2 27.4 mmHg (35.0-45.0); PO2 255.7 mmHg (80.0-100.0); pH 7.342 (7.360-7.450); sO2 99.6 % (92.0-98.0)
[2020-06-25 06:09] LABS: HEMATOCRIT 28.9 % (42.0-52.0); HEMOGLOBIN 9.3 gm/dL (14.0-18.0); MCH 29.4 pg (26.0-34.0); MCHC 32.1 g/dL (28.0-37.0); MCV 91.8 fL (80.0-100.0); PLATELET COUNT 181 thou/uL (150-400); RBC 3.15 mil/uL (4.50-6.00); RDW 18.5 % (10.5-14.5); WBC 7.1 thou/uL (4.0-11.0)
[2020-06-25 06:36] LABS: ALBUMIN 3.1 g/dL (3.4-5.0); CALCIUM 8.1 mg/dL (8.5-10.1); CREATININE 1.1 mg/dL (0.7-1.3); MAGNESIUM 2.2 mg/dL (1.8-2.4); PHOSPHORUS 4.7 mg/dL (2.5-4.9); TOTAL BILIRUBIN 0.9 mg/dL (0.2-1.0); TOTAL PROTEIN 5.8 g/dL (6.4-8.2)
--- NOTE | 2020-06-25 07:32 | NUR ---
PT ON CIWA AVERAGING 9. PT MORE CONFUSED THROUGHOUT NIGHT AND REMOVING 0XYGEN TUBING AND TELE OVER TEN TIMES. LORAZEPAM MAKES PT MORE CONFUSED AND MORE IMPULSIVE, GAVE X1 HALIDOL WITH GOOD RESULT. MINI RAPID AT 0430. ABG'S TAKEN, WHICH SHOWED PT IN METABOLIC STATUS. RECEIVED ORDERS FOR 1 AMP BICARB, 20ML LASIX, NRB MASK AT 10L AND FOR A MUNGUIA. PT PLACED IN RESTRAINTS AT THIS POINT DUE TO PULLING AT MUNGUIA, TELE LEADS AND NRB MASK. OXYGEN SATS IN 90'S DURING SPOT CHECKS. SPOKE TO OF PT AND FACETIMED WITH PT AFTER 0500. PT ALSO MOVED TO A DNR STATUS.
--- NOTE | 2020-06-25 11:48 | NUR ---
ASSESSMENT: CM REVIEWED CHART. CM ATTEMPTED TO REACH PT IN HIS ROOM VIA PHONE BUT NO ANSWER SO CM REACHED OUT TO PATIENTS AZIZA. PT IS CURRENTLY IN ENHANCED ISOLATION AND IS COVID POSITIVE. PT ADMITS FROM HOME WHERE HE LIVES WITH HIS . REPORTS THAT THEY OWN A BAR CALLED LILLY MARTINEZ AND SHE STATES THEY HAVE CURRENTLY SHUT DOWN HER BAR AND SHE AND ALL STAFF ARE ALSO GETTING TESTED. SHE REPORTS SHE IS UNSURE WHERE PT WAS EXPOSED BUT REPORTS HE WAS AT THEIR BAR AND THEY WOULD ALSO GO OUT TO EAT A COUPLE OF TIME PER WEEK. PT IS CURRENTLY ON 10 NRB AND WAS GIVEN DOSE OF IV LASIX THIS AM. PT ALSO IS CURRENTLY IN RESTRAINTS DUE TO ATTEMPTING TO PULL LINES AND IS ALSO ON A CIWA AND SCORING 5. REPORTS SHE IS UNSURE HOW MUCH HE DRINKS BUT REPORTS HE LIKELY DRINKS A SMALL AMOUT OF [place] DAILY. PT NORMALLY USES A CANE AT HOME WITH AMBULATION BUT ALSO HAS A WALKER. SHE REPORTS PT WAS INDEPENDENT WITH ADLS. PT HAS HAD HH IN THE PAST BUT UNSURE THE AGENCY. PT HAS NO HX OF SNF. PT HAS ABOUT TWO STEPS TO ENTER THE HOME AND NO STEPS ONCE INSIDE. CM DISCUSSED ROLE WITH . PT CURRENTLY REMAINS IN RESTRAINTS AND ON IV ANBX AND IV STEROIDS. STATING SHE IS CONCERNED HE WILL NOT MAKE IT. CM DISCUSSED CM IS AVAILABLE TO ASSIST NEEDED PENDING PTS PROGRESSION. CM WILL CONTINUE TO FOLLOW TO ASSIST NEEDED.
[2020-06-25 12:08] LABS: ABSOLUTE NEUTROPHILS 5.1 thou/uL (1.4-8.2); ANISOCYTOSIS 2+; BURR CELLS 1+; METAMYELOCYTES 5 %; MYELOCYTES 4 %
[2020-06-25 13:25] VITALS: BP 130/60
[2020-06-25 15:43] VITALS: BP 141/85
--- NOTE | 2020-06-25 18:46 | NUR ---
ASSUMED CARE OF PT AT 0700. PT LETHARGIC AND SLEEP FOR MOST OF THE SHIFT. SB AWARE OTHER VSS. NILDA TO DIANNA. SPOKE WITH PT THIS AFTERNOON TO UPDATE ON CARE.
[2020-06-25 19:18] VITALS: BP 146/81
[2020-06-26 05:36] LABS: CALCIUM 8.2 mg/dL (8.5-10.1); POTASSIUM 4.1 mmol/L (3.5-5.1)
[2020-06-26 06:01] VITALS: BP 158/90
--- NOTE | 2020-06-26 07:26 | NUR ---
REMAINS ON RESTRAINTS. VSS. CARE TRANSFERRED TO INCOMING RN AT THIS TIME.
[2020-06-26 07:36] VITALS: BP 139/96
--- NOTE | 2020-06-26 09:03 | NUR ---
Nutrition: pt seen due to dx sepsis-which is now resolved. Admit with COVID, PNA, hypokalemia. On CIWA protocol. Requiring restraints as has been pulling off 02. Stable weights past year per hx. Noted pt was eating 20-50% of meals til yesterday, refused 2 meals, ate 10% of dinner. Noted worsening respiratory status. Ensure is ordered BID and nsg reports pt did drink it this am and also ate some breakfast. DNR status. Place as low risk with interventions in place.
[2020-06-26 11:38] VITALS: BP 130/88
[2020-06-26 15:30] VITALS: BP 147/96
--- NOTE | 2020-06-26 15:37 | NUR ---
KEVIN reviewed chart and spoke with nursing and attending physician. Pt remains in Enhanced Isolation due to COVID-19. Pt is afebrile and on 3L of O2. Pt is on IV abx and IV steroids. Pt is in restraints due to pulling at lines. SW received call from pt's , requesting an update. Pt's requested to speak with attending physician, as she has not spoken with a physician during pt's hospital stay. KEVIN discussed discharge needs with pt's : home with HH v. post-acute placement. Pt's states that she would prefer pt return home, as she states pt would recover better at home. Pt's is agreeable with HH. KEVIN explained need to have therapy evaluate pt once he is out of restraints to determine his discharge needs. Pt's verbalized understanding. KEVIN provided contact info for pt's to attending physician, who spoke with pt's to provide clinical update and answer her questions. KEVIN is following to assist as needed with discharge planning.
--- NOTE | 2020-06-26 19:40 | NUR ---
PT ALERT AND ORIENTED TIMES THREE WITH PERIODS OF CONFUSION. VSS. 2L NC. PT DENIES PAIN/SOA, TOLERATES MEDS AND MEALS. SPOKE WITH PT AND DAUGHTER TODAY TO UPDATE ON CARE. PT WORKED WELL WITH PT/OT. PT PROGRESSING TOWRADS POC GOALS.
[2020-06-26 19:59] VITALS: BP 147/90
[2020-06-27 04:01] VITALS: BP 153/92
--- NOTE | 2020-06-27 05:25 | NUR ---
ASSUME CARE 1900. PT/VITALS STABLE. A/O TO PERSON AND PLACE WITH EPISODES OF FORGETFULNESS AND MILD CONFUSION. ANSWERS QUESTIONS APPROPRIATELY. ROOM AIR WITH SATS IN MID 90s. MILD SOB WITH EXERTION. LUNGS CLR/DIM. ASSESSMENT CHARTED. PROGRESSING WELL WITH POC. PLAN IS CONTINUE ABX THERAPY AND PIOSSIBLE DISCHARGE WITHIN 1-2 DAYS. WILL CONTINUE TO MONITOR AND FOLLOW WITH POC.
[2020-06-27 08:44] VITALS: BP 147/90
[2020-06-27 11:53] VITALS: BP 152/77
[2020-06-27 15:53] VITALS: BP 147/97
--- NOTE | 2020-06-27 15:53 | NUR ---
KEVIN reviewed chart and spoke with nursing and attending physician. Pt remains in Enhanced Isolation due to COVID-19. Pt is afebrile and not requiring O2. Pt is on IV abx and IV steroids. Pt is out of restraints. PT/OT to work with pt. KEVIN received call from pt's asking for an update and to speak with pt via phone. KEVIN discussed with pt's nurse, who states that she called pt's from pt's room earlier today. KEVIN spoke with pt's to discuss discharge plan: Home with HH v. SNF. Pt's has insisted that pt return home with HH. Options provided for HH agencies. No preference voiced. Home address and phone number verified. KEVIN faxed referral to [facility] for review. Notified intake of new referral. Pt's requests to speak with attending physician tomorrow if possible. KEVIN provided contact info to attending physician to follow up with pt's for an update. KEVIN is following to assist as needed with discharge planning.
--- NOTE | 2020-06-27 19:22 | NUR ---
ASSUMED PATIENT CARE AT 0700. ALERT TO SELF. VERY CONFUSED.PULLING LINES OFF AND OUT OF BED. BACK RESTRAINT AT 1600. CIW X5. NOT TOWARDS POC GOALS. KEEP MONITOR.
[2020-06-27 19:50] VITALS: BP 145/95
[2020-06-28 03:00] VITALS: BP 145/85
--- NOTE | 2020-06-28 05:24 | NUR ---
LOST IV ACCESS AND ESTABLISHED NEW IN RIGHT WRIST. PT STILL RESTLESS WITH IM OF ZYPREXIA AND CAUSES INCREASED OXYGEN NEEDS. HR IS IN THE 110-120 RANGE. PT HAS MULTIPLE WOUNDS AND BRUISES FROM HITTING THE BED RAILS. CONTINUING TO FOLLOW POC.
[2020-06-28 07:49] VITALS: BP 142/95
--- NOTE | 2020-06-28 09:05 | NUR ---
NOTED PATIENT ON 15L NRB O2 SAT 94%. RESTLESS ON BED AND PULLING MUNGUIA CATH. VERY CONFUSED. NOTIFIED DR SHARIF AND LAURA. WILL KEEP MONITOR.
[2020-06-28 10:09] LABS: CALCIUM 8.9 mg/dL (8.5-10.1); CREATININE 1.4 mg/dL (0.7-1.3); POTASSIUM 4.4 mmol/L (3.5-5.1)
[2020-06-28 11:24] VITALS: BP 146/103
[2020-06-28 15:31] VITALS: BP 125/53
[2020-06-29 04:50] VITALS: BP 132/61
[2020-06-29 05:59] LABS: CALCIUM 8.5 mg/dL (8.5-10.1); CREATININE 1.3 mg/dL (0.7-1.3); POTASSIUM 4.4 mmol/L (3.5-5.1)
[2020-06-29 08:16] VITALS: BP 126/74
--- NOTE | 2020-06-29 11:13 | NUR ---
discussed during prime time via phone call, pt on comfort care requiring morphine gtt. will cont following as needed for dc needs.
[2020-06-29 11:41] VITALS: BP 128/77
[2020-06-29 15:46] VITALS: BP 120/67
--- NOTE | 2020-06-29 17:52 | NUR ---
ASSUMED PATIENT CARE AT 0700. PATIENT ON COMFORT CARE. HAS MORPHINE GTT ON. NOTED PATIENT PASS AWAY AT 1700. DR CHIRSTINE AND LAURA NOTIFIED.
--- NOTE | 2020-07-01 10:52 | HC ---
[facility] [place] [address] CONSULTATION Name: TORSTEN HERMAN Room #: 354-P [facility] IN M.R.#: [id number] Admission: 06/21/20 Attend Phys: Barrington Barber MD Discharge: 06/29/20 Date of : 31 Report #: [id number] THIS REPORT FOR: cc: Husam Noland MD, Steven A. MD Khosla,Chris Barnes MD ~ DATE OF SERVICE: 06/27/2020 HISTORY OF PRESENT ILLNESS: This is an 89-year-old male patient who is unable to provide any reliable history. In fact, he does not give any history. It looks like he is having trouble lying back and he is trying to repeatedly get up. I reviewed all his record and his biggest problem appeared to be pulmonary, although he has multiple other problems including atrial fibrillations and now bradycardia. He is COVID positive and received multiple treatments for COVID and there is a question of alcohol history and he also received thiamine and multivitamin. REVIEW OF SYSTEMS: A 14-point review of system was carried out in this patient, but they are all from the record as the patient would not provide any reliable history and he did have generalized weakness, but he is trying to stand up and moving everything on my examination. He was in fact admitted with generalized weakness and the Emergency Room notes indicate that. 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 He had bypass surgery some time ago. This is the only relevant 14-point review of system I can get. PAST MEDICAL HISTORY: Positive for hypertension. FAMILY HISTORY: Unavailable. SOCIAL HISTORY: There is a history of smoking and drinking alcohol. PHYSICAL EXAMINATION: The patient's examination was pretty limited. When I asked him what month it is, he says "I don't know." When I asked him to follow some simple commands, he refused. He can say words, but he will not do the memory testing for me. I could not do cranial nerve examination. Neuromuscular examination was only by observation and that indicates that he can move all 4 extremities, but he does not allow the sensory system examination or reflex examination. He does not appear to have any meningeal sign. He does appear to be short of breath and in fact he is reluctant to lie down because of shortness of breath. Blood pressure is 147/97, respirations 18, pulse is 91, temperature is 97.8. LABORATORY DATA: He did have multiple chest x-rays, but I do not see any [address] [address] CONSULTATION Name: TORSTEN HERMAN Room #: 354-P [facility].#: [id number] Admission: 06/21/20 Attend Phys: Barrington Barber MD Discharge: 06/29/20 Date of : 31 Report #: [id number] imaging study of the brain. IMPRESSION: This patient most likely has severe encephalopathy because of systemic problems. He is on anticoagulation and his history is poor. It will be desirable to do the CT scan of the head to exclude any pathology. He did get steroids and part of it can cause problem, some withdrawal from nicotine or alcohol can cause problem, although the history is not very typical because it looks like it was a few weeks ago he drank alcohol, but I cannot confirm that history. RECOMMENDATIONS: Neurologically, I do not have anything specific to add. I did order a vitamin B12. If he is stable enough to go down for CT scan, I will suggest doing a CT scan of the head. If that shows any abnormality, please let us know and we will follow up, but I do not think otherwise neurologically I have anything else to recommend until CT scan shows something. This patient will not be able to do the MRI. I am not sure whether he will be even able to do the CT because he has a lot of trouble lying flat and he becomes short of breath and then he try to sit up to compensate for that. Thank you very much for this referral. Please call me if there is any question. <ELECTRONICALLY SIGNED> By: Chris Cai MD 07/01/20 1052 [id number] Chris Cai MD /nt
== END 2020-06-29 18:00 | DRG 871 ==
LOC: ER 18:22 → EROBS 20:12 → 3W 20:12
PROVIDERS: Emergency Medicine; Internal Medicine; Internal Medicine Cardiovascular Disease; Internal Medicine Pulmonary Disease; Nurse Practitioner; Nurse Practitioner Family; ADMIT Hospitalist; ATTEND Hospitalist
PROC: 5A09357 Assistance with Respiratory Ventilation, Less than 24 Consecutive Hours, Continuous Positive Airway Pressure (ICD-10-PCS; principal; 2020-06-28)
DX: A41.9 Sepsis, unspecified organism (principal); U07.1 COVID-19; J12.89 Other viral pneumonia; J96.01 Acute respiratory failure with hypoxia; G93.41 Metabolic encephalopathy; F10.239 Alcohol dependence with withdrawal, unspecified; E78.5 Hyperlipidemia, unspecified; E87.6 Hypokalemia; I25.10 Atherosclerotic heart disease of native coronary artery without angina pectoris; N40.0 Benign prostatic hyperplasia without lower urinary tract symptoms; M10.9 Gout, unspecified; E03.9 Hypothyroidism, unspecified; I50.9 Heart failure, unspecified; I48.91 Unspecified atrial fibrillation; I25.5 Ischemic cardiomyopathy; I35.0 Nonrheumatic aortic (valve) stenosis; Z66 Do not resuscitate; E83.42 Hypomagnesemia; R41.0 Disorientation, unspecified; I11.0 Hypertensive heart disease with heart failure; F03.90 Unspecified dementia, unspecified severity, without behavioral disturbance, psychotic disturbance, mood disturbance, and anxiety; Z51.5 Encounter for palliative care; Z95.1 Presence of aortocoronary bypass graft; Z88.1 Allergy status to other antibiotic agents; Z95.2 Presence of prosthetic heart valve; Z99.81 Dependence on supplemental oxygen; Z79.01 Long term (current) use of anticoagulants; Z82.49 Family history of ischemic heart disease and other diseases of the circulatory system; Z79.899 Other long term (current) drug therapy
CPT/HCPCS: 10080; 10879